=== PATIENT | female | born 1940 | race Caucasian/White ===

== ENCOUNTER → 2017-12-15 | Outpatient (CLI) | payer MEDICARE ==
[~2017-12-15] MED LIST: ANUCORT HC25 MG; ARICEPT10 MG; ARICEPT5 MG PO; ASPIRIN81 M1 PO; ATIVAN0.5 MG PO; CALCIUM + D3 E1 EACH PO; CELEXA20 MG PO; COLACE100 MG PO; EFFEXOR75 MG; Effexor25 MG PO; FOSAMAX70 MG PO; FOSAMAX70 MG/75 M PO; LEVOTHYROXIN0.025 MG PO; LISINOPRIL10 MG; LOPRESSOR25 MG PO; METOPROLOL50 MG; NAMENDA XR PO; NAMENDA1 TAB PO; NAMZARIC 28 MG1 EACH PO; OXYBUTYNIN10 MG; OXYBUTYNIN10 MG PO; PRINIVIL10 MG PO; SYNTHROID,LEVO25 MCG; Synthroid,Levo25 MCG PO; VENLAFAXINE HYD75 M3 PO; ZOCOR40 MG PO
[2017-12-15 13:24] LABS: PTH INTACT 100.7 pg/mL (14.0-72.0); VITAMIN D, 25-HYDROXY 23.2 ng/mL (30-100)
== END | disposition home or self-care (01) ==
LOC: LAB 11:41
PROVIDERS: Nurse Practitioner Family
DX: E83.51 Hypocalcemia (principal)

== ENCOUNTER → 2017-12-21 | Day surgery (SDC) | payer MEDICARE ==
[2017-12-20 10:18] LABS: BASO # 0.1 10*3/uL (0.0-0.1); BASO % 1.6 % (0.0-1.0); EOS # 0.2 10*3/uL (0.0-0.4); EOS % 3.2 % (1.0-4.0); HEMATOCRIT 46.1 % (37.0-47.0); HEMOGLOBIN 14.5 g/dl (12.0-16.0); LYMPH % 20.2 % (27.0-41.0); MEAN CORPUSCULAR HGB 28.3 pg (27.0-31.0); MEAN CORPUSCULAR HGB CONC 31.5 g/dl (33.0-37.0); MEAN PLATELET VOLUME 10.3 fl (9.6-12.3); MONO # 0.8 10*3/uL (0.1-1.0); MONO % 15.8 % (3.0-9.0); NEUT % 58.8 % (47.0-73.0); PLATELET COUNT AUTOMATED 238 10*3/uL (130-400); RED BLOOD COUNT 5.12 10*6/uL (4.10-5.10); RED CELL DISTRI WIDTH 14.2 % (0-14.5); WHITE BLOOD COUNT 5.1 10*3/uL (4.8-10.8)
[2017-12-20 10:43] LABS: BUN 13 mg/dl (7-24); CHLORIDE 102 mmol/L (98-107); CREATININE 0.99 mg/dL (0.55-1.02); POTASSIUM 4.7 mmol/L (3.5-5.1); SODIUM 143 mmol/L (136-145)
[~2017-12-21] VITALS: Ht 162.5 cm; Wt 72.6 kg
[2017-12-21 08:43] VITALS: BP 127/66
[2017-12-21 10:17] VITALS: BP 155/117
[2017-12-21 10:32] VITALS: BP 136/75
[2017-12-21 10:47] VITALS: BP 136/75
== END | disposition home or self-care (01) ==
LOC: SDC 12-20 10:15
DX: L82.0 Inflamed seborrheic keratosis (principal); I10 Essential (primary) hypertension; E78.5 Hyperlipidemia, unspecified; E03.9 Hypothyroidism, unspecified; F03.90 Unspecified dementia, unspecified severity, without behavioral disturbance, psychotic disturbance, mood disturbance, and anxiety; F41.9 Anxiety disorder, unspecified; F32.9 Major depressive disorder, single episode, unspecified; Z90.49 Acquired absence of other specified parts of digestive tract; Z98.890 Other specified postprocedural states; Z79.899 Other long term (current) drug therapy; Z79.82 Long term (current) use of aspirin; Z91.041 Radiographic dye allergy status; Z88.8 Allergy status to other drugs, medicaments and biological substances; Z90.710 Acquired absence of both cervix and uterus; Z88.2 Allergy status to sulfonamides

== ENCOUNTER 2019-04-03 11:37 | Emergency (ER) | payer MEDICARE ==
[~2019-04-03] VITALS: Wt 90.7 kg
[2019-04-03 12:02] VITALS: BP 110/60
[2019-04-03 13:43] LABS: BASO # 0.1 10*3/uL (0.0-0.1); EOS # 0.2 10*3/uL (0.0-0.4); EOS % 3.3 % (1.0-4.0); HEMATOCRIT 43.3 % (37.0-47.0); HEMOGLOBIN 13.7 g/dl (12.0-16.0); LYMPH # 1.3 10*3/uL (1.3-4.4); LYMPH % 17.9 % (27.0-41.0); MEAN CELL VOLUME 90.8 fl (81.0-99.0); MEAN CORPUSCULAR HGB 28.7 pg (27.0-31.0); MEAN CORPUSCULAR HGB CONC 31.6 g/dl (33.0-37.0); MEAN PLATELET VOLUME 10.8 fl (9.6-12.3); MONO # 0.7 10*3/uL (0.1-1.0); MONO % 9.5 % (3.0-9.0); NEUT # 4.9 10*3/uL (2.3-7.9); NEUT % 67.9 % (47.0-73.0); PLATELET COUNT AUTOMATED 228 10*3/uL (130-400); RED BLOOD COUNT 4.77 10*6/uL (4.10-5.10); RED CELL DISTRI WIDTH 15.6 % (0-14.5); WHITE BLOOD COUNT 7.3 10*3/uL (4.8-10.8)
[2019-04-03 13:56] LABS: ALBUMIN 2.9 gm/dl (3.1-4.5); ALKALINE PHOSPHATASE 54 U/L (45-117); BUN 13 mg/dl (7-24); CHLORIDE 106 mmol/L (98-107); CREATININE 0.94 mg/dL (0.55-1.02); POTASSIUM 3.8 mmol/L (3.5-5.1); SGOT/AST 11 IU/L (3-35); SGPT/ALT 10 U/L (12-78); SODIUM 140 mmol/L (136-145); TOTAL PROTEIN 6.1 gm/dL (6.4-8.2)
== END 2019-04-03 16:02 | disposition home or self-care (01) ==
LOC: ED 11:37
PROVIDERS: Physician Assistant
DX: M23.003 Cystic meniscus, unspecified medial meniscus, right knee (principal); I10 Essential (primary) hypertension; E78.00 Pure hypercholesterolemia, unspecified; M06.9 Rheumatoid arthritis, unspecified; Z88.2 Allergy status to sulfonamides; Z91.041 Radiographic dye allergy status; Z79.899 Other long term (current) drug therapy; Z79.82 Long term (current) use of aspirin

== ENCOUNTER 2019-05-05 17:03 | Inpatient (IN) | payer MEDICARE, MEDICAID ==
[~2019-05-05] VITALS: Ht 162.6 cm; Wt 68.7 kg
--- NOTE | ~2019-05-05 | EKG ---
[place], [place] ELECTROCARDIOGRAM REPORT NAME: MIKE MANDUJANO UNIT #: [id number] ROOM: 410 DOCTOR: MEHUL DRAFT REPORT BIRTHDATE: [birth year] [facility] Test Date: 2019-05-05 Test Time: 17:27:30 Pat Name: MIKE MANDUJANO Department: Room: 410 Gender: F Mft: Daljit Mcnulty : 1940 Requested By: DMITRY TRIPATHI Order Number: [id number] Reading MD: Dylan Montaño MD Measurements Intervals Mena Rate: 55 P: 49 IL: 186 QRS: 50 QRSD: 94 T: 33 QT: 502 QTc: 481 Interpretive Statements Sinus rhythm Abnormal R-wave progression, early transition Electronically Signed On 05-06-2019 14:22:29 PDT by Dylan Montaño MD CM:EKGRPT:ELECTROCARDIOGRAM REPORT [id number] DMITRY TRIPATHI DO EPIPHMARIA VICTORIA DRAFT REPORT DMITRY TRIPATHI DO
[2019-05-05 17:03] VITALS: BP 133/55
[2019-05-05 17:54] LABS: BASO # 0.1 10*3/uL (0.0-0.1); BASO % 0.6 % (0.0-1.0); EOS # 0.1 10*3/uL (0.0-0.4); HEMATOCRIT 50.1 % (37.0-47.0); HEMOGLOBIN 15.7 g/dl (12.0-16.0); LYMPH % 9.2 % (27.0-41.0); MEAN CELL VOLUME 91.1 fl (81.0-99.0); MEAN CORPUSCULAR HGB 28.5 pg (27.0-31.0); MEAN CORPUSCULAR HGB CONC 31.3 g/dl (33.0-37.0); MEAN PLATELET VOLUME 11.5 fl (9.6-12.3); MONO # 0.9 10*3/uL (0.1-1.0); MONO % 8.7 % (3.0-9.0); NEUT # 8.5 10*3/uL (2.3-7.9); NEUT % 80.2 % (47.0-73.0); PLATELET COUNT AUTOMATED 222 10*3/uL (130-400); RED CELL DISTRI WIDTH 14.7 % (0-14.5); WHITE BLOOD COUNT 10.6 10*3/uL (4.8-10.8)
[2019-05-05 18:04] LABS: ACT PARTIAL THROMBO TIME 24.4 SECONDS (20.0-32.1)
[2019-05-05 18:08] LABS: ALKALINE PHOSPHATASE 68 U/L (45-117); BUN 17 mg/dl (7-24); CHLORIDE 104 mmol/L (98-107); CREATININE 1.17 mg/dL (0.55-1.02); LIPASE 83 U/L (73-393); SGOT/AST 16 IU/L (3-35); SGPT/ALT 15 U/L (12-78); SODIUM 139 mmol/L (136-145)
[2019-05-05 18:16] LABS: TROPONIN I < 0.015 ng/ml (<0.045)
[2019-05-05 19:06] LABS: BILIRUBIN 1+ (NEGATIVE); BLOOD TRACE-INTACT (NEGATIVE); CLARITY CLEAR (CLEAR); COLOR YELLOW (YELLOW); GLUCOSE NEGATIVE (NEGATIVE); KETONE TRACE (NEGATIVE); LEUKO ESTERASE NEGATIVE (NEGATIVE); NITRITE NEGATIVE (NEGATIVE); SPECIFIC GRAVITY 1.015 (1.005-1.030)
[2019-05-05 19:22] LABS: MUCOUS 3+
[2019-05-05 19:23] LABS: HYALINE CAST 31-40; RBC 0-2 rbc/hpf (0-2)
[2019-05-05 19:24] LABS: BACTERIA 1+
[2019-05-05 20:45] VITALS: BP 129/71
[2019-05-05 20:56] VITALS: BP 127/58
--- NOTE | 2019-05-05 20:56 | NUR ---
A 78, admitted to 4E, under the services of KHALIDA Espinosa DO with a diagnosis of INCREASED CONFUSION DEHYDRATION UTI. Chief complaint is INCREASED CONFUSION. Patient arrived via stretcher from ER. Monitor applied. Initial assessment completed. Vital signs taken and recorded. KHALIDA ESPINOSA DO notified of admission to the unit. Orders received. See assessment for past medical history, medications and allergies. Patient and/or family oriented to unit. [facility] visitation policy reviewed. Clothing/patient valuable form completed. JEAN-CLAUDE AGUILERA
--- NOTE | 2019-05-05 21:00 | NUR ---
LARGE HEMATOMA TO LEFT HIP FROM PRIOR FALL AT HOME, YESTERDAY (05/04). NO OPEN WOUNDS SEEN ON ADMISSION.
--- NOTE | 2019-05-05 22:30 | NUR ---
DR DOOLEY NOTIFIED OF UPDATED MED REC.
[2019-05-06] VITALS: BP 134/68
[2019-05-06 08:00] VITALS: BP 140/82
[2019-05-06 08:00] LABS: BASO # 0.1 10*3/uL (0.0-0.1); BASO % 0.6 % (0.0-1.0); EOS # 0.2 10*3/uL (0.0-0.4); HEMATOCRIT 46.7 % (37.0-47.0); HEMOGLOBIN 14.6 g/dl (12.0-16.0); LYMPH # 1.4 10*3/uL (1.3-4.4); LYMPH % 14.8 % (27.0-41.0); MEAN CELL VOLUME 92.1 fl (81.0-99.0); MEAN CORPUSCULAR HGB 28.8 pg (27.0-31.0); MEAN CORPUSCULAR HGB CONC 31.3 g/dl (33.0-37.0); MEAN PLATELET VOLUME 11.7 fl (9.6-12.3); MONO # 0.8 10*3/uL (0.1-1.0); MONO % 8.4 % (3.0-9.0); NEUT % 73.8 % (47.0-73.0); PLATELET COUNT AUTOMATED 191 10*3/uL (130-400); RED BLOOD COUNT 5.07 10*6/uL (4.10-5.10); RED CELL DISTRI WIDTH 14.8 % (0-14.5); WHITE BLOOD COUNT 9.5 10*3/uL (4.8-10.8)
[2019-05-06 08:12] LABS: ACT PARTIAL THROMBO TIME 21.7 SECONDS (20.0-32.1)
[2019-05-06 08:17] LABS: ALBUMIN 2.6 gm/dl (3.1-4.5); BUN 13 mg/dl (7-24); CHLORIDE 109 mmol/L (98-107); CHOLESTEROL 129 mg/dL (<200); CREATININE 0.87 mg/dL (0.55-1.02); HDL CHOLESTEROL 55 mg/dl (40-60); PHOSPHOROUS 2.6 mg/dL (2.5-4.9); POTASSIUM 3.6 mmol/L (3.5-5.1); SGOT/AST 16 IU/L (3-35); SGPT/ALT 12 U/L (12-78); SODIUM 141 mmol/L (136-145); TOTAL PROTEIN 6.5 gm/dL (6.4-8.2)
[2019-05-06 08:23] LABS: ALKALINE PHOSPHATASE 61 U/L (45-117); FREE T4 1.28 ng/dl (0.76-1.46); LDL CHOLESTEROL 58 mg/dL (9-159); TRIGLYCERIDES 82 mg/dl (<150); VLDL CHOLESTEROL 16 mg/dL (6-40)
--- NOTE | 2019-05-06 08:24 | NUR ---
PT RESTING IN BED. NO DISTRESS NOTED. WILL MONITOR
[2019-05-06 08:53] LABS: VITAMIN D, 25-HYDROXY 15.1 ng/mL (30-100)
[2019-05-06 12:00] VITALS: BP 138/64
[2019-05-06 16:00] VITALS: BP 133/58
[2019-05-06 20:00] VITALS: BP 108/56
--- NOTE | 2019-05-06 20:00 | NUR ---
24 HOUR CHART CHECK COMPLETE.
--- NOTE | 2019-05-06 21:56 | NUR ---
PT DRANK A FULL ENSURE, ATE A COUPLE OF BITES OF LEMON PIE, AND ATE CHOCOLATE ICE CREAM THAT WAS BROUGHT IN BY THE PTS FAMILY. I ENCOURAGED THE PT TO DRINK WATER AND SHE WILL LONG IT IS GIVEN TO HER. WILL CONTINUE TO ENCOURAGE FLUIDS AND FOOD LONG THE PATIENT IS AWAKE.
[2019-05-07] VITALS: BP 130/45
[2019-05-07 08:00] VITALS: BP 138/55
--- NOTE | 2019-05-07 08:56 | NUR ---
PT RESTING IN BED. NO DISTRESS NOTED. WILL MONITOR
[2019-05-07] MEDS ORDERED: NATURE'S BLEND F1 MG PO (10:33)
[2019-05-07] MEDS ORDERED: PHARMASSURE V500 MCG PO (10:33)
[2019-05-07] MEDS ORDERED: LISINOPRIL20 MG PO (10:33)
--- NOTE | 2019-05-07 11:18 | NUR ---
PT/ PT FAMILY REFUSED DC WOUND PHOTOS
--- NOTE | 2019-05-07 12:00 | NUR ---
Discharge instructions reviewed with patient/family. Patient receptive and verbalizes understanding. Follow-up care arranged. Written instructions given to patient/family. SITA ANN
== END 2019-05-07 12:00 | disposition home or self-care (01) | DRG 682 ==
LOC: ED 17:03 → 4E 19:53 → EDHOLD 19:53 → 4E 20:27
PROVIDERS: Internal Medicine; ADMIT Emergency Medicine
DX: N17.0 Acute kidney failure with tubular necrosis (principal); G93.41 Metabolic encephalopathy; E43 Unspecified severe protein-calorie malnutrition; N39.0 Urinary tract infection, site not specified; E86.0 Dehydration; R62.7 Adult failure to thrive; G30.0 Alzheimer's disease with early onset; F02.80 Dementia in other diseases classified elsewhere, unspecified severity, without behavioral disturbance, psychotic disturbance, mood disturbance, and anxiety; E83.41 Hypermagnesemia; I10 Essential (primary) hypertension; E78.5 Hyperlipidemia, unspecified; R29.6 Repeated falls; E03.9 Hypothyroidism, unspecified; E87.8 Other disorders of electrolyte and fluid balance, not elsewhere classified; Z79.82 Long term (current) use of aspirin; Z88.2 Allergy status to sulfonamides; Z91.041 Radiographic dye allergy status; Z90.49 Acquired absence of other specified parts of digestive tract; Z82.49 Family history of ischemic heart disease and other diseases of the circulatory system; Z82.3 Family history of stroke; Z68.26 Body mass index [BMI] 26.0-26.9, adult